=== PATIENT | female | born 1995 | race Caucasian/White ===

== ENCOUNTER 2020-10-12 09:11 | Observation (INO) | payer BC ==
[~2020-10-12] VITALS: Ht 157.5 cm; Wt 67.1 kg
[2020-10-12] MEDS ORDERED: BETAMETH ACET/BETAMETH NA PH 30 MG/5 ML VIAL IM SCH (10:00)
[2020-10-12] MEDS ORDERED: PNV91TAB8 PO (10:07)
[2020-10-12] MEDS ORDERED: OSC500 PO (10:07)
[2020-10-12 10:08] VITALS: BP 135/89
[2020-10-13] MEDS ORDERED: OXYTOCIN 20 UNITS/LR PREMIX 1,000 ML IV ONE (23:13)
== END 2020-10-12 11:45 | disposition home or self-care (01) ==
LOC: MLD 09:11
PROVIDERS: ADMIT Obstetrics & Gynecology; ATTEND Obstetrics & Gynecology
DX: O26.893 Other specified pregnancy related conditions, third trimester (principal); R10.2 Pelvic and perineal pain; Z3A.35 35 weeks gestation of pregnancy
CPT/HCPCS: 59025; 76819; 96372; G0378; J0702; J2590

== ENCOUNTER 2020-10-13 10:34 | Inpatient (IN) | payer BC, SELFPAY ==
[~2020-10-13] VITALS: Ht 157.5 cm; Wt 67.1 kg
[~2020-10-13 10:34] MED LIST: OSC500 PO; PNV91TAB8 PO
[2020-10-13] MEDS ORDERED: BETAMETH ACET/BETAMETH NA PH 30 MG/5 ML VIAL IM SCH (11:10)
[2020-10-13 11:46] VITALS: BP 134/77
--- NOTE | 2020-10-13 15:14 | NUR ---
PATIENT HAS BEEN SCREENED AND CATEGORIZED LOW NUTRITION RISK. PATIENT WILL BE SEEN WITHIN 7 DAYS OF ADMISSION. 10/19/[address]
[2020-10-13 16:12] LABS: BILIRUBIN,URINE NEGATIVE (NEGATIVE); BLOOD, URINE TRACE-I (NEGATIVE); COLOR,URINE YELLOW (YELLOW); LEUKOCYTE ESTERASE ,URINE TRACE (NEGATIVE); NITRITE, URINE NEGATIVE (NEGATIVE); PH,URINE 6.5 (5.0-9.0); UGLUCOSE NEGATIVE (NEGATIVE)
[2020-10-13 16:18] LABS: APPEARANCE,URINE HAZY (CLEAR)
[2020-10-13 16:53] LABS: URINE TOTAL PROTEIN 11.6 mg/dL (0-12)
[2020-10-13 17:24] LABS: HEMATOCRIT 37.8 % (36-48); HEMOGLOBIN 12.5 g/dL (12.0-16.0); LYMPHOCYTES # (AUTO) 1.7 K/uL (2.5-16.5); LYMPHOCYTES % (AUTO) 10.9 % (20.5-51.1); MEAN CORPUSCULAR HEMOGLOBIN 31 pg (27-31); MEAN CORPUSCULAR HGB CONC 33 g/dL (33-37); MEAN CORPUSCULAR VOLUME 92.7 fL (80-94); MONOCYTES # (AUTO) 0.3 K/uL (0.8-1.0); MONOCYTES % (AUTO) 2.2 % (1.7-9.3); NEUTROPHILS # (AUTO) 13.5 K/uL (1.8-7.7); NEUTROPHILS % (AUTO) 86.9 % (42.2-75.2); PLATELET COUNT (AUTO) 196 K/uL (140-450); RED BLOOD CELL COUNT(AUTO) 4.08 MIL/uL (4.20-5.40); RED CELL DISTRIBUTION WIDTH 14.8 % (11.6-13.7); WHITE BLOOD COUNT (AUTO) 15.6 K/uL (4.8-10.8)
[2020-10-13] MEDS ORDERED: LACTATED RINGERS 1,000 ML IV SCH ×3 (17:25→23:25)
[2020-10-13 17:59] LABS: ALBUMIN 2.7 g/dL (3.4-5.0); ANION GAP 14.7 (8-16); CARBON DIOXIDE 22.4 mmol/L (21-32); CREATININE 0.9 mg/dL (0.6-1.3); POTASSIUM 4.1 mmol/L (3.5-5.1); TOTAL BILIRUBIN 0.2 mg/dL (0.0-1.0)
[2020-10-13 18:37] LABS: PROTHROMBIN TIME 9.5 secs (10.8-13.4)
[2020-10-13 18:55] LABS: URIC ACID 4.9 mg/dL (2.6-7.2)
[2020-10-13] MEDS ORDERED: CITRIC ACID/SODIUM CITRATE 30 ML UDC ONE (21:37)
[2020-10-13] MEDS ORDERED: ceFAZolin 1,000 MG VIAL ONE (21:38)
[2020-10-13] MEDS ORDERED: CITRIC ACID/SODIUM CITRATE 30 ML UDC PO SCH (22:20)
[2020-10-13] MEDS ORDERED: MORPHINE PRES FREE 10 MG/10 ML AMP IV ONE (22:25)
[2020-10-13] MEDS ORDERED: KETOROLAC 30 MG/ML VIAL ONE (22:45)
[2020-10-13] MEDS ORDERED: DEXAMETHASONE 4 MG/ML VIAL ONE (22:45)
[2020-10-13] MEDS ORDERED: METOCLOPRAMIDE 10 MG/2 ML INJ VIAL ONE (22:45)
[2020-10-13] MEDS ORDERED: NALOXONE 0.4 MG/ML VIAL IVP PRN ×3 (23:25)
[2020-10-13] MEDS ORDERED: ONDANSETRON 4 MG/2 ML VIAL IVP PRN ×2 (23:25)
[2020-10-13] MEDS ORDERED: MEPERIDINE 25 MG/ML SYR IVP PRN (23:25)
[2020-10-13] MEDS ORDERED: HYDROmorphone 1 MG/ML AMP IVP PRN (23:25)
[2020-10-13] MEDS ORDERED: NALBUPHINE 10 MG/ML AMP IVP PRN (23:25)
[2020-10-13] MEDS ORDERED: diphenhydrAMINE 50 MG/ML VIAL IVP PRN ×2 (23:25)
[2020-10-14] MEDS ORDERED: METHYLERGONOVINE 0.2 MG/ML AMP IM PRN (00:05)
[2020-10-14] MEDS ORDERED: MEASLES, MUMPS, AND RUBELLA 1 VIAL SQVAC PRN (00:05)
[2020-10-14] MEDS ORDERED: oxyCODONE/APAP 5/325 MG 1 TAB TAB PO PRN ×2 (00:05→18:05)
[2020-10-14] MEDS: KETOROLAC 30 MG/ML VIAL IM/IVP SCH ×3 (06:03→17:40)
[2020-10-14] MEDS: OXYTOCIN 20 UNITS in LACTATED RINGERS 1,000 ML IV SCH ×2 (07:07→15:00)
[2020-10-14] MEDS: bisacodyL 10 MG SUPP RC SCH (09:00)
[2020-10-14] MEDS: IBUPROFEN 800 MG TAB PO SCH (17:39)
[2020-10-14] MEDS ORDERED: PROMETHAZINE 25 MG/ML VIAL IVP PRN (18:45)
[2020-10-15 05:56] LABS: BASOPHILS % (AUTO) 0.2 % (0.0-2.0); EOSINOPHILS % (AUTO) 0.1 % (0.0-4.0); HEMOGLOBIN 11.4 g/dL (12.0-16.0); LYMPHOCYTES # (AUTO) 2.1 K/uL (2.5-16.5); LYMPHOCYTES % (AUTO) 14.9 % (20.5-51.1); MEAN CORPUSCULAR HEMOGLOBIN 31 pg (27-31); MEAN CORPUSCULAR HGB CONC 34 g/dL (33-37); MEAN CORPUSCULAR VOLUME 91.9 fL (80-94); MONOCYTES # (AUTO) 0.8 K/uL (0.8-1.0); MONOCYTES % (AUTO) 5.9 % (1.7-9.3); NEUTROPHILS # (AUTO) 11.4 K/uL (1.8-7.7); NEUTROPHILS % (AUTO) 78.9 % (42.2-75.2); PLATELET COUNT (AUTO) 139 K/uL (140-450); RED CELL DISTRIBUTION WIDTH 14.5 % (11.6-13.7); WHITE BLOOD COUNT (AUTO) 14.4 K/uL (4.8-10.8)
[2020-10-15] MEDS: IBUPROFEN 800 MG TAB PO SCH ×3 (06:05→17:47)
[2020-10-15] MEDS: bisacodyL 10 MG SUPP RC SCH (09:00)
[2020-10-15] MEDS ORDERED: CAMERA MC ONE (20:20)
[2020-10-16] MEDS: IBUPROFEN 800 MG TAB PO SCH ×2 (03:46→12:45)
[2020-10-16] MEDS: bisacodyL 10 MG SUPP RC SCH (08:30)
[2020-10-16] MEDS: IBUPROFEN 800 MG TAB PO PRN (21:51)
[2020-10-17] MEDS: bisacodyL 10 MG SUPP RC SCH (09:00)
[2020-10-17] MEDS: IBUPROFEN 800 MG TAB PO PRN (11:02)
== END 2020-10-17 11:30 | disposition home or self-care (01) | DRG 786 ==
LOC: MLD 10:34 → MFCC 12:56 → OBSVTOIN 17:46 → MFCC 10-14 00:50
PROVIDERS: ADMIT Obstetrics & Gynecology; ATTEND Obstetrics & Gynecology
PROC: 10D00Z1 Extraction of Products of Conception, Low, Open Approach (ICD-10-PCS; principal; 2020-10-14)
PROC: 3E0234Z Introduction of Serum, Toxoid and Vaccine into Muscle, Percutaneous Approach (ICD-10-PCS; 2020-10-14)
DX: O76 Abnormality in fetal heart rate and rhythm complicating labor and delivery (principal); O60.23X0 Term delivery with preterm labor, third trimester, not applicable or unspecified; O69.81X0 Labor and delivery complicated by cord around neck, without compression, not applicable or unspecified; O36.5930 Maternal care for other known or suspected poor fetal growth, third trimester, not applicable or unspecified; O16.4 Unspecified maternal hypertension, complicating childbirth; Z3A.36 36 weeks gestation of pregnancy; Z37.0 Single live birth; Z23 Encounter for immunization; Z20.822 Contact with and (suspected) exposure to COVID-19
CPT/HCPCS: 36415; 76819; 80053; 81001; 82570; 84550; 85025; 85384; 85610; 85730; 86592; 86762; 86886; 86900; 86901; 87086; 87340; 87653-90; 90715; 96360; 96372; G0378; J0690; J0702; J1100; J1885; J2270; J2590; J2765; J7120

== ENCOUNTER 2023-07-23 08:57 | Observation (INO) | payer BC ==
[~2023-07-23] VITALS: Ht 157.5 cm; Wt 63.0 kg
[2023-07-23] MEDS ORDERED: BETAMETH ACET/BETAMETH NA PH 30 MG/5 ML VIAL IM SCH (09:25)
[2023-07-23 09:30] VITALS: BP 110/68; PULSE 96; RESP 18; TEMP 98
[2023-07-23] MEDS ORDERED: ACTI300 PO (09:44)
== END 2023-07-23 10:35 | disposition home or self-care (01) ==
LOC: MLD 08:57
PROVIDERS: ADMIT Obstetrics & Gynecology; ATTEND Obstetrics & Gynecology
DX: O26.893 Other specified pregnancy related conditions, third trimester (principal); R10.9 Unspecified abdominal pain; Z3A.34 34 weeks gestation of pregnancy
CPT/HCPCS: 96372; G0378; J0702

== ENCOUNTER 2023-07-24 09:52 | Observation (INO) | payer BC ==
[~2023-07-24] VITALS: Ht 157.5 cm; Wt 63.0 kg
[~2023-07-24 09:52] MED LIST changes: +ACTI300 PO; -OSC500 PO
[2023-07-24] MEDS ORDERED: BETAMETH ACET/BETAMETH NA PH 30 MG/5 ML VIAL IM SCH (10:10)
[2023-07-24] MEDS ORDERED: BETAMETH ACET/BETAMETH NA PH 30 MG/5 ML VIAL IM ONE (10:28)
== END 2023-07-24 11:16 | disposition home or self-care (01) ==
LOC: MLD 09:52
PROVIDERS: ADMIT Obstetrics & Gynecology; ATTEND Obstetrics & Gynecology
DX: O26.893 Other specified pregnancy related conditions, third trimester (principal); R10.9 Unspecified abdominal pain; Z3A.34 34 weeks gestation of pregnancy
CPT/HCPCS: 96372; G0378; G0379; J0702